=== PATIENT | female | born 1960 | race Caucasian/White ===

== ENCOUNTER 2016-10-25 21:32 | Emergency (ER) | payer OTHER ==
[2016-10-25 21:58] VITALS: BP 168/85; PULSE 70; RESP 16; TEMP 98.6; O2SAT 96
[2016-10-25] MEDS ORDERED: HYDROCOD/APAP 5/325 PREPACK#6 BTL TAKEHOME ONE (22:35)
--- NOTE | 2016-10-25 22:35 | UCPHY ---
H & P Time Seen by Provider: 10/25/16 22:13 Patient Type: New HPI/ROS: This patient tried her teenagers however board out and immediately fell off backward with immediate FOOSH mechanism to the left wrist shortly prior to arrival. She reports moderate pain to the distal radius and mild swelling. The incident occurred 1 hour prior to arrival. She has not taken any medications. She reports worsening with movement of the wrist and no other exacerbating or alleviating factors. ROS: No other injuries from the fall. Neuro: No numbness or tingling 5 point ROS is otherwise negative Past Medical/Surgical History: Inflammatory bowel disease Smoking Status: Never smoked Physical Exam: Physical Exam Vital signs are normal. General: No acute distress HEENT: Atraumatic. Eyes: Pupils equal and react to light. Extraocular motions are intact. Neck: Nontender Lungs: No respiratory distress. Cardiac: Brisk capillary refill is intact throughout. Pulses are 2+ and symmetric in the affected extremity. Skin: No rash or pallor. Extremities: Atraumatic normal except for left wrist Left wrist: Patient has mild swelling and tenderness the distal radius. No significant deformity. No ulnar styloid tenderness. No anatomical snuffbox tenderness. She retains good motion of all her fingers. Neuro: Alert and oriented x3 with no sensorimotor deficits. Initial differential diagnosis: Wrist sprain versus fracture Constitutional: Initial Vital Signs Temperature (C) 37 C 10/25/16 21:56 Heart Rate 70 10/25/16 21:56 Respiratory Rate 16 10/25/16 21:56 Blood Pressure 168/85 H 10/25/16 21:56 O2 Sat (%) 96 10/25/16 21:56 O2 Delivery Mode Room Air Allergies/Adverse Reactions: No Known Allergies Allergy (Unverified 08/22/12 15:46) Home Medications: Medication Instructions Recorded Estrogen,Con/M-Progest Acet 1 each PO 08/22/12 [Premphase 0.625-5 mg Tablet] Budesonide 10/25/16 Hydrocodone/APAP 5/325 [[place] 1 - 2 tab PO Q4PRN PRN #12 tab 10/25/16 5/325 (*)] MDM/Departure - MDM Diagnostics: Wrist x-ray: Distal radius transverse fracture of the radial metaphysis without significant displacement or angulation. Appreciate no intra-articular component. There is will rounded ulnar styloid mineralization appears consistent with an old remote fracture by my interpretation ED Course/Re-evaluation: Patient is placed in Orthoglass sugar-tong splint by our tech. She is neurovascularly intact post splint application. I counseled regarding wrist fracture. - Depart Disposition: Home, Routine, Self-Care Clinical Impression: Distal radius fracture, left Qualifiers: Encounter type: initial encounter Fracture type: closed Fracture morphology: other fracture Qualified Code(s): S52.592A - Other fractures of lower end of left radius, initial encounter for closed fracture Condition: Good Instructions: Wrist Fracture in Adults (ED) Additional Instructions: Diagnosis: Distal radius fracture Plan: Keep the splint on at all times. Keep the splint dry. Follow up with orthopedic physician sometime the next 3-7 days for casting. Tylenol or Vicodin if needed for pain. No driving, alcohol or come Vicodin. Prescriptions: Hydrocodone/APAP 5/325 [[place] 5/325 (*)] 1 - 2 tab PO Q4PRN PRN #12 tab PRN Reason: Pain Referrals: Cash Chen MD [Primary Care Provider] - As per Instructions Homer Whittington MD [Medical Doctor] - As per Instructions - PQRS PQRS Measurement: NA
== END 2016-10-25 23:04 | disposition home or self-care (01) ==
LOC: CED 21:32
PROC: 2W3DX1Z Immobilization of Left Lower Arm using Splint (ICD-10-PCS; principal; 2016-10-25)
DX: S52.532A Colles' fracture of left radius, initial encounter for closed fracture (principal); V00.181A Fall from other rolling-type pedestrian conveyance, initial encounter; Y92.019 Unspecified place in single-family (private) house as the place of occurrence of the external cause; Y93.89 Activity, other specified
CPT/HCPCS: 73110-PO; G0463-PO

== ENCOUNTER → 2017-11-15 | Outpatient (CLI) | payer OTHER | LOC: FIMAGING 13:18 | PROVIDERS: ATTEND Family Medicine | DX: Z12.31 Encounter for screening mammogram for malignant neoplasm of breast (principal) ==

== ENCOUNTER → 2018-11-30 | Outpatient (CLI) | payer OTHER | LOC: FIMAGING 12:47 | PROVIDERS: ATTEND Family Medicine | DX: Z12.31 Encounter for screening mammogram for malignant neoplasm of breast (principal) ==